=== PATIENT | female | born 1960 | race Two or more races ===

== ENCOUNTER 2024-12-27 13:06 | Emergency (ER) | payer SELFPAY ==
--- NOTE | ~2024-12-27 | XR_ITS ---
EXAMINATION: XR LUMBOSACRAL SPINE CLINICAL INFORMATION: back pain COMPARISON: None available. TECHNIQUE: AP and lateral views. FINDINGS: Multilevel marginal osteophyte formation and syndesmophyte formation involving the lower thoracic and lumbar spine. 10% volume loss of the vertebral body at L3 and L4 likely old. Endplate sclerosis at multiple levels. No gross malalignment. No lytic or blastic lesions. Facet joint hypertrophy at L5-S1 and to a lesser extent L4-5. Rudimentary ribs at T12. 5 mm peripheral calcified opacity upper right hemiabdomen. XR/XR lumbar spine 2-3V IMPRESSION: Multilevel thoracolumbar spondylosis. Probable old superior endplate compression deformities at L3 and L4. Electronically signed by: Evan Cabello MD 12/27/2024 03:13 PM EDT
--- NOTE | ~2024-12-27 | XR_ITS ---
EXAMINATION: XR HIP, LEFT CLINICAL INFORMATION: pain COMPARISON: None available. TECHNIQUE: AP and oblique views of the left hip. AP view pelvis. FINDINGS: Bony pelvis is intact. Degenerative changes in the sacroiliac joints and symphysis pubis. No acute cortical disruption or gross malalignment, left coxofemoral joint. No lytic or blastic lesions. Spondylosis, L4-5, L5-S1 and to a lesser extent L3-4. XR/XR hip LT w PEL1V IMPRESSION: No acute fracture or dislocation, left hip. No acute fracture, bony pelvis. Electronically signed by: Evan Cabello MD 12/27/2024 03:14 PM EDT
--- NOTE | 2024-12-27 14:22 | ED_ITS ---
HPI - Back Pain/Injury General Chief Complaint: Back Pain/Injury Stated Complaint: Low Back Pain Radiating Down Legs Time Seen by Provider: 12/27/24 16:45 Source: patient, RN notes reviewed and other (coworker) Mode of arrival: ambulatory Limitations: language barrier ([employer] used ) History of Present Illness ED Provider: Tamanna Graf PA-C HPI Narrative: This is a 42-[id number]-Lucrecia speaking female, with a hx of HTN, who presents to the ER accompanied by her boss, with complaints of back pain that radiates into her legs. Pain started 1 week ago. Reports that no trauma or injury. Reports pain has worsened over the course of the week. No urinary symptoms, no saddle anesthesia. Denies any chest pain or SOB. No abdominal pain, nausea, vomiting or diarrhea. No hx of similar symptoms. No other complaints or concerns at this time. MD elicited complaint: back pain Onset (ago): day(s) Timing: constant Severity: moderate Similar Symptoms Previously: No Quality: aching Location: lumbar spine Exacerbating factors: movement Relieving factors: immobilization Associated symptoms: denies other symptoms Related Data Previous Rx's ?Medication ?Instructions ?Recorded acetaminophen 500 mg tablet 1,000 mg (2 x 500 mg) PO Q 8H PRN 12/27/24 (Tylenol Extra Strength) pain #30 tabs cyclobenzaprine 10 mg tablet 10 mg PO TID #10 tabs prednisone 20 mg tablet 40 mg (2 x 20 mg) PO DAILY 5 days 12/27/24 #10 tabs Allergies Allergy/AdvReac Type Severity Reaction Status Date / Time No Known Allergies Allergy Verified 12/27/24 14:28 Review of Systems Review of Systems: Yes all other systems are reviewed and are negative Constitutional: Constitutional: Reports as per HPI [facility] Past Medical History Attestation statement: The following information was validated with the patient. Social History Social History Advance Directives: No Advance Directives Information Provided: No Do you have a plan to hurt others: No Plan Physical Exam Vital Signs: Vital Signs: Last Vital Signs Temp 97.5 F 12/27/24 17:16 Pulse 76 12/27/24 17:16 Resp 18 12/27/24 17:16 BP 148/66 H 12/27/24 17:16 Pulse Ox 100 12/27/24 17:16 O2 Del Method Room Air 12/27/24 17:16 BMI result Body Mass Index 30.5 Const: General: cooperative, comfortable and no acute distress O rientation/consciousness: patient oriented x3 Limitations: no limitations HEENT: Head: Yes normal to inspection, Yes normocephalic and Yes atraumatic Ears: hearing grossly normal bilaterally General nose exam: Normal external nose present Face and sinus: Yes normal facial exam Mouth: Normal oral and palatal mucosa present, oropharynx normal and moist mucous membranes Throat: Yes posterior oropharynx normal Eyes: General: appearance normal, both eyes and all related structures Eyelids: Yes eyelids normal Conjunctivae: conjunctivae normal Sclerae: sclerae normal Pupils: Equal, round and reactive pupils present EOM: EOMs intact bilaterally Neck: Neck: Yes normal visual inspection, Yes full ROM and Yes no lymphadenopathy Lymphatic: no lymphadenopathy noted Chest: Chest palpation & inspection: normal inspection of the chest Resp: Effort & Inspection: normal respiratory effort and able to speak in complete sentences Auscultation: clear to auscultation bilaterally, no crackles, no rales, no rhonchi and no wheezes Cardio: Rate: regular rate Rhythm: regular rhythm Heart sounds: S1 normal heart sound present and S2 normal heart sound present GI: Other: Abdomen is soft, nontender, nondistended. Inspection: Yes normal to inspection Back/Spine/Pelvis: Other: TTP overlying the lumbar midline spine. DTR 2+, strength 5/5 in lower extremities. Pain worsening with positional changes. Skin: General skin exam: no rashes or lesions noted Trauma: no lacerations or abrasions Wounds: no wounds Neuro: General: patient oriented x3 and moves all extremities Cranial nerves: Yes Equal, round and reactive pupils present Extrem: General: Yes normal to inspection Right upper extremity: normal to inspection Left upper extremity: normal to inspection Right lower extremity: normal to inspection Left lower extremity: normal to inspection Medications Administered Discontinued Medications Generic Name Dose Route Start Last Admin Trade Name Freq PRN Reason Stop Dose Admin Ketorolac Tromethamine 30 mg 12/27/24 17:01 12/27/24 17:08 Ketorolac Tromethamine 30 Mg/Ml Vial IM 12/27/24 17:02 30 mg ONCE ONE Administration Medical Decision Making Medical Decision Making MDM Narrative: This is a 65-jjbg-[id number]-Lucrecia speaking female, with no known medical problems, who presents to the ER accompanied by her services manager with concerns of back pain x 1 week. No trauma or injury. Pt works as a manager quality systems. On arrival, BP elevatd at 203/97, however upon repeat 148/66. She is ambulatory with steady gait. She has had no chest pain, abdomoinal pain. Pain worsens with palpation over the L midline spine. DTR 2+, strength 5/5. This patient presents with back pain most consistent with lumbar radiculopathy. Differential diagnoses includes lumbago versus musculoskeletal spasm / strain versus sciatica. No back pain red flags on history or physical. Presentation not consistent with malignancy (lack of history of malignancy, lack of B symptoms), fracture (no trauma, no bony tenderness to palpation), cauda equina syndrome (no bowel or urinary incontinence/retention, no saddle anesthesia, no distal weakness), AAA, viscus perforation , pulmonary embolism, renal colic, pyelonephritis (afebrile, no CVAT, no urinary symptoms). Xrays were obtained which revealed multilevel thoracolumbar spondylsis, with probable old superior endplate compression deformities at L3 and L4. Also with 5mm peripheral calcified opacity upper right hemiabdomen. I discussed with patient witth park superintendent of all these findings. Medicated with toradol in the department. Given return precautions, Stressed the importance of f/u with PCP regarding xray findings as well as f/u with logging specialist. Pt understands and agrees with plan, stable for d.c. Differential Diagnosis Differential Diagnoses: The differential diagnosis associated with the presentation includes see above Admission/Observation Consideration of admission/observation: Escalation of care including admission/observation considered Radiology Impression Discussion of test interpretation with radiology: I have reviewed the radiologist's reading. Radiologist Impression: COMPARISON: None available. TECHNIQUE: AP and lateral views. FINDINGS: Multilevel marginal osteophyte formation and syndesmophyte formation involving the lower thoracic and lumbar spine. 10% volume loss of the vertebral body at L3 and L4 likely old. Endplate sclerosis at multiple levels. No gross malalignment. No lytic or blastic lesions. Facet joint hypertrophy at L5-S1 and to a lesser extent L4-5. Rudimentary ribs at T12. 5 mm peripheral calcified opacity upper right hemiabdomen. XR/XR lumbar spine 2-3V IMPRESSION: Multilevel thoracolumbar spondylosis. Probable old superior endplate compression deformities at L3 and L4. Electronically signed by: Evan Cabello MD 12/27/2024 03:13 PM EDT RP FINDINGS: Bony pelvis is intact. Degenerative changes in the sacroiliac joints and symphysis pubis. No acute cortical disruption or gross malalignment, left coxofemoral joint. No lytic or blastic lesions. Spondylosis, L4-5, L5-S1 and to a lesser extent L3-4. XR/XR hip LT w PEL1V IMPRESSION: No acute fracture or dislocation, left hip. No acute fracture, bony pelvis. Electronically signed by: Evan Cabello MD 12/27/2024 03:14 PM EDT RP Dictated By: Evan Gilliam MD Discharge Plan Discharge Clinical Impression: Lumbar radiculopathy Patient Disposition: Home, Self-Care Instructions: Lumbar Radiculopathy (ED), Back Pain (ED), Lower Back Exercises (ED) Additional Instructions: You were seen in the emergency department due to back pain. Your likely suffering from something called lumbar radiculopathy. This is when you have inflammation that is compressing on a nerve, and you do have pain going down your leg. We medicated you with a medication called Toradol. This is a medication that can help with pain and inflammation. I am also starting you on steroid all medication, this is known as prednisone. Take as prescribed. Flexeril as a muscle relaxants that can help with pain, take as needed. Please be advised that this can cause drowsiness, do not drink alcohol or drive while taking this medication. Moist heat can also help with your symptoms. Gentle stretching, and massage can also help. You need to follow-up with the primary care physician as you may need to have further imaging of your abdomen as they had found an incidental finding of a opacity in your abdomen. I am also referring you to the logging specialist, you may follow-up with them, call to make an appointment. If any new or worsening symptoms occur including but not limited to severe chest pain, shortness of breath, difficulty walking, weakness in her lower legs, please return for re-evaluation. Your x-ray findings are below: FINDINGS: Multilevel marginal osteophyte formation and syndesmophyte formation involving the lower thoracic and lumbar spine. 10% volume loss of the vertebral body at L3 and L4 likely old. Endplate sclerosis at multiple levels. No gross malalignment. No lytic or blastic lesions. Facet joint hypertrophy at L5-S1 and to a lesser extent L4-5. Rudimentary ribs at T12. 5 mm peripheral calcified opacity upper right hemiabdomen. XR/XR lumbar spine 2-3V IMPRESSION: Multilevel thoracolumbar spondylosis. Probable old superior endplate compression deformities at L3 and L4. FINDINGS: Bony pelvis is intact. Degenerative changes in the sacroiliac joints and symphysis pubis. No acute cortical disruption or gross malalignment, left coxofemoral joint. No lytic or blastic lesions. Spondylosis, L4-5, L5-S1 and to a lesser extent L3-4. XR/XR hip LT w PEL1V IMPRESSION: No acute fracture or dislocation, left hip. No acute fracture, bony pelvis. Electronically signed by: Evan Cabello MD 12/27/2024 03:14 PM EDT Prescriptions: New cyclobenzaprine 10 mg tablet 10 mg PO TID Qty: 10 0RF prednisone 20 mg tablet 40 mg PO DAILY 5 Days Qty: 10 0RF acetaminophen [Tylenol Extra Strength] 500 mg tablet 1,000 mg PO Q8H PRN (Reason: pain) Qty: 30 0RF Referrals: [facility] [Provider Group, Neurosurgery] Interventions: ED Discharge Assessment Last Done: 12/27/24 17:16 Discharge Date/Time: 12/27/24 17:16 Print Language: Lucrecia
[2024-12-27 14:24] VITALS: BP 203/97; PULSE 72; RESP 18; TEMP 36.8; O2SAT 99; BMI 30.5
--- NOTE | 2024-12-27 14:30 | PC.NURSE ---
Certified Medical Technician # [id number] Lucrecia
[2024-12-27 17:03] VITALS: BP 148/66; PULSE 76; RESP 18; TEMP 36.4; O2SAT 100
[2024-12-27 17:16] VITALS: BP 148/66; PULSE 76; RESP 18; TEMP 36.4; O2SAT 100
== END 2024-12-27 17:16 | disposition home or self-care (01) ==
PROVIDERS: Emergency Provider Emergency Medicine
DX: M54.16 Radiculopathy, lumbar region (principal); I10 Essential (primary) hypertension; M47.815 Spondylosis without myelopathy or radiculopathy, thoracolumbar region
CPT/HCPCS: 72100; 73502; 96372; 99283; 99284; J1885

== ENCOUNTER → 2024-12-27 14:30 | Outpatient (BNV) | payer SELFPAY | PROVIDERS: Visit Provider Radiology Diagnostic Radiology | DX: M47.895 Other spondylosis, thoracolumbar region (principal); M25.552 Pain in left hip | CPT/HCPCS: 72100; 73502 ==